=== PATIENT | male | born 1940 | race Caucasian/White ===

== ENCOUNTER 2017-11-29 16:12 | Inpatient (IN) | payer OTHER, MEDICAID ==
[~2017-11-29] VITALS: Ht 172.7 cm; Wt 79.4 kg
--- NOTE | 2017-11-29 16:24 | NUR ---
PT IS IN ROOM #2A. DR ANDERSON EVALUATED THE PT.
--- NOTE | 2017-11-29 16:57 | NUR ---
PT WAS TRANSFERED TO ROOM #145A. DR ANDERSON EVALUATED THE PT.
--- NOTE | 2017-11-29 17:20 | NUR ---
PT ARRIVED TO UNIT ON W/C ACCOMPANIED BY ER NURSE. PT IS CALM AND COOPERATIVE. CONFUSED AND DISORIENTED. NO AGGRESSIVE OR COMBATIVE BEHAVIOR. IN NO ACUTE DISTRESS AT THIS TIME. DENIES PAIN OR DISCOMFORT.
[2017-11-29] MEDS ORDERED: ACETAMINOPHEN 325 MG TABLET PO PRN (17:30)
[2017-11-29] MEDS ORDERED: TEMAZEPAM 7.5 MG CAPSULE PO PRN (17:30)
[2017-11-29] MEDS ORDERED: LORAZEPAM 0.5 MG TABLET PO PRN (17:30)
[2017-11-29] MEDS ORDERED: MAGNESIUM HYDROXIDE 30 ML LIQUID UDC PO PRN (17:30)
[2017-11-29] MEDS ORDERED: MAG HYDROX/AL HYDROX/SIMETH 30 ML LIQUID UDC PO PRN (17:30)
[2017-11-29] MEDS ORDERED: GABAPENTIN PO (17:31)
[2017-11-29] MEDS ORDERED: QUET25TA PO (17:31)
[2017-11-29] MEDS ORDERED: PRAV20TA4 PO (17:31)
[2017-11-29] MEDS ORDERED: TAMS0.4C34 PO (17:31)
[2017-11-29] MEDS ORDERED: LISI-607 PO (17:31)
[2017-11-29] MEDS ORDERED: LAMO100T PO (17:31)
[2017-11-29] MEDS ORDERED: DONE10TA44 PO (17:31)
[2017-11-29] MEDS ORDERED: MEMA10TA PO (17:31)
[2017-11-29 18:09] VITALS: BP 177/94
[2017-11-29 18:58] VITALS: BP 183/78
[2017-11-29 20:04] VITALS: BP 132/71
[2017-11-30 07:30] VITALS: BP 157/73
--- NOTE | 2017-11-30 10:37 | NUR ---
Firearms Reporting: KAYKAY submitted Mental Health Report to [facility] on 11/30.
[2017-11-30] MEDS ORDERED: Medication Not On Formulary EA (Pravastatin Sodium 1 TAB) PO SCH (14:45)
[2017-11-30] MEDS: TAMSULOSIN HCL 0.4 MG CAP.SR.24H PO SCH (15:21)
[2017-11-30] MEDS: GABAPENTIN 100 MG CAPSULE PO SCH ×2 (15:22→16:22)
[2017-11-30] MEDS: SERTRALINE HCL 50 MG TABLET PO SCH (15:23)
[2017-11-30] MEDS: LISINOPRIL 5 MG TABLET PO SCH (15:26)
[2017-11-30 15:30] VITALS: BP 153/79
[2017-11-30] MEDS ORDERED: GABAPENTIN 100 MG CAPSULE PO SCH (17:00)
[2017-11-30] MEDS ORDERED: QUETIAPINE FUMARATE 25 MG TABLET PO PRN (18:45)
[2017-11-30 19:42] VITALS: BP 129/69
[2017-11-30] MEDS: QUETIAPINE FUMARATE 25 MG TABLET PO SCH (20:22)
[2017-11-30] MEDS: ATORVASTATIN 10 MG TABLET PO SCH (20:22)
--- NOTE | 2017-11-30 22:00 | NUR ---
received to care, lying in bed, pleasant upon approach. compliant with medications and staff direction. assisted to the bathroom, via FWW, and given a bedtime snack. as of 2200, he appears to be asleep. no distress noted. will continue to monitor closely.
[2017-12-01 07:30] VITALS: BP 142/73
--- NOTE | 2017-12-01 08:25 | NUR ---
UR Note: KAYKAY faxed patient's clinicals to NEHEMIAS Ardon at [facility] [[phone]; fax: [phone]]. Awaiting authorization.
[2017-12-01] MEDS: TAMSULOSIN HCL 0.4 MG CAP.SR.24H PO SCH (09:42)
[2017-12-01] MEDS: GABAPENTIN 100 MG CAPSULE PO SCH ×3 (09:43→17:43)
[2017-12-01] MEDS: SERTRALINE HCL 50 MG TABLET PO SCH (09:44)
[2017-12-01] MEDS: LISINOPRIL 5 MG TABLET PO SCH (09:44)
[2017-12-01 15:44] VITALS: BP 98/65
--- NOTE | 2017-12-01 18:59 | NUR ---
PATIENT IN BED MOST OF SHIFT ISOLATIVE AND WITHDRAWN NO OUTBURTS, Ris cont to monitor
--- NOTE | 2017-12-01 19:23 | NUR ---
in day room most of shift redirectable and med compliant , no behavior problems, continue to monitor for safety
[2017-12-01 20:13] VITALS: BP 91/59
[2017-12-01] MEDS: ATORVASTATIN 10 MG TABLET PO SCH (20:43)
[2017-12-01] MEDS: QUETIAPINE FUMARATE 25 MG TABLET PO SCH (20:43)
--- NOTE | 2017-12-01 22:00 | NUR ---
received to care, watching tv with peers, calm and pleasant upon approach. compliant with medications and staff direction. as of 2199, he appears to be asleep. no distress noted. will continue to monitor closely.
[2017-12-02 07:30] VITALS: BP 157/82
[2017-12-02 08:05] LABS: BASOPHILS % (AUTO) 0.6 % (0.0-2.0); EOSINOPHILS # (AUTO) 0.2 K/uL (0.0-0.7); EOSINOPHILS % (AUTO) 3.6 % (0.0-7.0); HEMATOCRIT 40.7 % (36.7-47.1); HEMOGLOBIN 13.7 g/dL (12.5-16.3); LYMPHOCYTES # (AUTO) 1.4 K/uL (20.0-40.0); LYMPHOCYTES % (AUTO) 21.4 % (20.5-51.5); MEAN CORPUSCULAR HEMOGLOBIN 32.9 uug (23.8-33.4); MEAN CORPUSCULAR HGB CONC 34 g/dL (32.5-36.3); MEAN CORPUSCULAR VOLUME 97.8 fL (73.0-96.2); MONOCYTES # (AUTO) 0.6 K/uL (2.0-10.0); MONOCYTES % (AUTO) 9.3 % (0.0-11.0); NEUTROPHILS # (AUTO) 4.3 K/uL (1.8-8.9); NEUTROPHILS % (AUTO) 65.1 % (38.5-71.5); PLATELET COUNT (AUTO) 164 K/uL (152-348); RED BLOOD CELL COUNT(AUTO) 4.16 MIL/uL (4.06-5.63); WHITE BLOOD COUNT (AUTO) 6.7 K/uL (3.6-10.2)
[2017-12-02 08:41] LABS: ALANINE AMINOTRANSFERASE 18 U/L (16-63); ALKALINE PHOSPHATASE 89 U/L (50-136); ASPARTATE AMINOTRANSFERASE 26 U/L (15-37); BILIRUBIN,TOTAL 1.2 mg/dL (0.2-1.0); CARBON DIOXIDE 28 mmol/L (21-32); CHLORIDE 110 mmol/L (98-107); CREATININE 1.2 mg/dL (0.6-1.3); GLUCOSE 107 mg/dL (74-106); PHOSPHOROUS 4.2 mg/dL (2.5-4.9); POTASSIUM 3.9 mmol/L (3.5-5.1); TOTAL PROTEIN, SERUM 7.4 g/dL (6.4-8.2); UREA NITROGEN, BLOOD 24 mg/dL (7-18)
[2017-12-02] MEDS: LISINOPRIL 5 MG TABLET PO SCH (09:18)
[2017-12-02] MEDS: GABAPENTIN 100 MG CAPSULE PO SCH ×3 (09:18→17:09)
[2017-12-02] MEDS: TAMSULOSIN HCL 0.4 MG CAP.SR.24H PO SCH (09:18)
[2017-12-02] MEDS: SERTRALINE HCL 50 MG TABLET PO SCH (09:19)
--- NOTE | 2017-12-02 11:32 | NUR ---
Initial DC Plan: Patient currently lives at home with his Lata [[address] [place] [address]; [phone]]. SW will follow up with MD, patient, and patient's to discuss most appropriate discharge plans. SW will form a safe and proper discharge.
--- NOTE | 2017-12-02 13:02 | NUR ---
UR Note: KAYKAY submitted patient's most recent clinicals to NEHEMIAS Guido at [facility] [phone]. [phone]; ].
[2017-12-02 16:13] VITALS: BP 139/68
[2017-12-02] MEDS: ATORVASTATIN 10 MG TABLET PO SCH (20:28)
[2017-12-02] MEDS: QUETIAPINE FUMARATE 25 MG TABLET PO SCH (20:28)
[2017-12-02 20:37] VITALS: BP 148/74
--- NOTE | 2017-12-02 22:00 | NUR ---
received to care, sitting in his room, calm and pleasant upon approach. compliant with medications and staff direction. as of 0, he appears to be asleep. no distress noted. will continue to monitor closely.
[2017-12-03 07:30] VITALS: BP 146/57
[2017-12-03] MEDS: TAMSULOSIN HCL 0.4 MG CAP.SR.24H PO SCH (08:51)
[2017-12-03] MEDS: GABAPENTIN 100 MG CAPSULE PO SCH ×3 (08:52→16:13)
[2017-12-03] MEDS: LISINOPRIL 5 MG TABLET PO SCH (08:53)
[2017-12-03] MEDS: SERTRALINE HCL 50 MG TABLET PO SCH (08:54)
--- NOTE | 2017-12-03 11:26 | NUR ---
UR Note: KAYKAY submitted patient's most recent clinicals to NEEHMIAS Guido at [facility] [phone]. [phone]; ]. Awaiting authorization.
[2017-12-03 15:15] VITALS: BP 104/49
[2017-12-03 20:00] VITALS: BP 157/64
[2017-12-03] MEDS: ATORVASTATIN 10 MG TABLET PO SCH (20:55)
[2017-12-03] MEDS: QUETIAPINE FUMARATE 25 MG TABLET PO SCH (20:55)
--- NOTE | 2017-12-03 23:54 | NUR ---
received to care, lying in his room, calm and pleasant upon approach. compliant with medications and staff direction. as of 0, he appears to be asleep. no distress noted. will continue to monitor closely
--- NOTE | 2017-12-04 06:00 | NUR ---
slept 7.5 hours, total. assisted with am care, and shower. no distress noted.
[2017-12-04 07:30] VITALS: BP 125/76
[2017-12-04] MEDS: GABAPENTIN 100 MG CAPSULE PO SCH ×3 (08:10→17:28)
[2017-12-04] MEDS: LISINOPRIL 5 MG TABLET PO SCH (08:10)
[2017-12-04] MEDS: SERTRALINE HCL 50 MG TABLET PO SCH (08:10)
[2017-12-04] MEDS: TAMSULOSIN HCL 0.4 MG CAP.SR.24H PO SCH (08:10)
--- NOTE | 2017-12-04 12:08 | NUR ---
Discharge Planning Note: KAYKAY left voicemails for patient's Lata [[phone]] and son Glenn [[phone]] to discuss patient's discharge for tomorrow. KAYKAY will attempt to call again this afternoon.
--- NOTE | 2017-12-04 14:53 | NUR ---
Discharge Planning Note: SW attempted to call patient's Lata [[phone]] again to discuss patient's discharge. Lata did not answer. SW will attempt to follow up again.
--- NOTE | 2017-12-04 15:00 | NUR ---
Gps/Rate Supervisor- Patients' Lata called , aware of discharge planning tomorrow , claimed SW called her and was well informed.
[2017-12-04 15:30] VITALS: BP 135/53
--- NOTE | 2017-12-04 15:50 | NUR ---
Thursday DC Note: Patient will be discharged home [[address] [place] [address]; [phone]] via private transportation. SW spoke with with patient's Lata [[phone]] who stated she and patient's son will fern picker patient around 11am on Thursday. Patient is aware and agreeable to discharge plans. Patient will follow up with his primary physician Dr. Salas [[phone]] on 01/11. Patient has a medication management appointment with Dr. Fontaine on Thursday 12/07 at 12:15pm [[address] [place] [address]; [phone]] and a therapy appointment with Barbara Lopes LCSW on 12/11 at 3:30pm [[address]. [place] [address]; [phone]].
[2017-12-04] MEDS: ATORVASTATIN 10 MG TABLET PO SCH (20:04)
[2017-12-04] MEDS: QUETIAPINE FUMARATE 25 MG TABLET PO SCH (20:04)
[2017-12-04 20:35] VITALS: BP 134/63
[2017-12-05 07:30] VITALS: BP 151/70
[2017-12-05] MEDS: TAMSULOSIN HCL 0.4 MG CAP.SR.24H PO SCH (08:26)
[2017-12-05] MEDS: SERTRALINE HCL 50 MG TABLET PO SCH (08:26)
[2017-12-05] MEDS: GABAPENTIN 100 MG CAPSULE PO SCH ×2 (08:26→12:43)
[2017-12-05 08:27] VITALS: BP 151/70
[2017-12-05] MEDS: LISINOPRIL 5 MG TABLET PO SCH (08:27)
--- NOTE | 2017-12-05 13:15 | NUR ---
GPS: Nursing Notes: Discharge Notes: Patient is awake and responding to his name, cooperative with staff and compliant with his medications, denies any SI/HI, denies any AH/VH, denies any pain or discomfort, denies any SOB, discharge home with his Lata at [address] [place] [address] , picked up by his son Jose Holcomb, transported home via private vehicle, instructions and prescriptions given to Jose Holcomb. Patient will follow up with his primary physician Dr. Salas [[phone]] on 01/11. Patient has a medication management appointment with Dr. Fontaine on Thursday 12/07 at 12:15pm [[address] [place] [address]; [phone]] and a therapy appointment with Barbara Lopes LCSW on 12/11 at 3:30pm [[address]. [place] [address]; [phone]].
== END 2017-12-05 13:16 | disposition home or self-care (01) | DRG 885 ==
LOC: ER 16:14 → GPS 17:00
PROVIDERS: ADMIT Psychiatry & Neurology Psychosomatic Medicine; ATTEND Internal Medicine
DX: F32.3 Major depressive disorder, single episode, severe with psychotic features (principal); F02.80 Dementia in other diseases classified elsewhere, unspecified severity, without behavioral disturbance, psychotic disturbance, mood disturbance, and anxiety; G30.9 Alzheimer's disease, unspecified; F20.9 Schizophrenia, unspecified; I25.10 Atherosclerotic heart disease of native coronary artery without angina pectoris; Z91.14 Patient's other noncompliance with medication regimen; N40.0 Benign prostatic hyperplasia without lower urinary tract symptoms; Z79.899 Other long term (current) drug therapy; I10 Essential (primary) hypertension; E78.5 Hyperlipidemia, unspecified
CPT/HCPCS: 36415; 82306; 83735; 84100; 85025; A4663